=== PATIENT | female | born 1990 | race Asian ===

== ENCOUNTER 2020-06-18 09:08 | Emergency (ER) | payer BC, OTHER ==
[~2020-06-18] VITALS: Ht 147.3 cm; Wt 34.0 kg
[2020-06-18] MEDS ORDERED: TRAZ-257 PO (09:27)
[2020-06-18] MEDS ORDERED: HYDR-501 PO (09:27)
[2020-06-18] MEDS ORDERED: [UNRECOGNIZED DRUG - MIXTURE] PO (09:27)
[2020-06-18] MEDS ORDERED: UREA85CR23 TP (09:27)
[2020-06-18] MEDS ORDERED: ACETAMINOPHEN 325 MG TABLET ONE (09:28)
[2020-06-18] MEDS ORDERED: ACETAMINOPHEN 325 MG TABLET PO ONE (09:30)
--- NOTE | 2020-06-18 09:43 | NUR ---
Patient discharged to home in stable condition. Written and verbal after care instructions given. Patient verbalizes understanding of instructions. Stressed follow up or return to ER for worsening s/s.
== END 2020-06-18 09:46 | disposition home or self-care (01) ==
LOC: ER 09:08
DX: B34.9 Viral infection, unspecified (principal); R50.9 Fever, unspecified; Z20.828 Contact with and (suspected) exposure to other viral communicable diseases; R03.0 Elevated blood-pressure reading, without diagnosis of hypertension
CPT/HCPCS: 99283; U0003; A4663

== ENCOUNTER 2021-04-03 12:57 | Emergency (ER) | payer BC, OTHER ==
[~2021-04-03] VITALS: Ht 147.3 cm; Wt 36.3 kg
[~2021-04-03 12:57] MED LIST: HYDR-501 PO; TRAZ-257 PO; UREA85CR23 TP; [UNRECOGNIZED DRUG - MIXTURE] PO
--- NOTE | 2021-04-03 13:15 | NUR ---
[email or web address], medical screening exam in progress
--- NOTE | 2021-04-03 13:56 | NUR ---
X-ray done. For discharge per MD, pending discharge papers@this time.
--- NOTE | 2021-04-03 14:34 | NUR ---
Patient discharged to home in stable condition with brisk steady gait. Written and verbal after care instructions given to patient. Patient verbalized understanding & compliance of instructions. Stressed follow up with primary doctor or return to ER for worsening s/s.
== END 2021-04-03 14:34 | disposition home or self-care (01) ==
LOC: ER 12:57
DX: M25.532 Pain in left wrist (principal); M77.8 Other enthesopathies, not elsewhere classified; G47.00 Insomnia, unspecified; Z79.899 Other long term (current) drug therapy
CPT/HCPCS: 73110; A4663

== ENCOUNTER 2021-04-06 19:33 | Emergency (ER) | payer BC, OTHER ==
[~2021-04-06] VITALS: Ht 147.3 cm; Wt 39.9 kg
--- NOTE | 2021-04-06 21:00 | NUR ---
Patient is resting comfortably in bed, using phone. No acute distress noted.
[2021-04-06] MEDS ORDERED: HYDR-3980 PO (21:07)
[2021-04-06 21:57] VITALS: BP 132/82
--- NOTE | 2021-04-06 21:57 | NUR ---
Patient discharged to home in stable condition. Written and verbal after care instructions given. Patient verbalizes understanding of instructions. Stressed follow up or return to ER for worsening s/s. Patient ambulates with steady gait, V/S stable, received paper Rx, and left with all personal belongings.
== END 2021-04-06 21:57 | disposition home or self-care (01) ==
LOC: ER 19:33
DX: S69.92XA Unspecified injury of left wrist, hand and finger(s), initial encounter (principal); M25.532 Pain in left wrist; X50.3XXA Overexertion from repetitive movements, initial encounter; Y93.89 Activity, other specified; Y92.89 Other specified places as the place of occurrence of the external cause; Y99.0 Civilian activity done for income or pay; G47.00 Insomnia, unspecified; R03.0 Elevated blood-pressure reading, without diagnosis of hypertension
CPT/HCPCS: 73110; A4663

== ENCOUNTER 2021-10-18 11:41 | Emergency (ER) | payer BC, OTHER ==
[~2021-10-18] VITALS: Ht 152.4 cm; Wt 45.4 kg
[~2021-10-18 11:41] MED LIST changes: +HYDR-3980 PO
--- NOTE | 2021-10-18 11:53 | NUR ---
DR Almeida at the bedside for MSE.
[2021-10-18] MEDS ORDERED: BENZ200C53 PO (11:55)
[2021-10-18] MEDS ORDERED: BENZONATATE 100 MG CAPSULE PO ONE (12:00)
--- NOTE | 2021-10-18 12:06 | NUR ---
PT WAS D/C'd TO HOME AFTER DR RODRIGUEZ EVALUATED THE PT.
[2021-10-18 12:07] VITALS: BP 133/75
[2021-10-18] MEDS ORDERED: BENZONATATE 100 MG CAPSULE ONE (12:07)
== END 2021-10-18 12:08 | disposition home or self-care (01) ==
LOC: ER 11:43
DX: R05.9 Cough, unspecified (principal); R03.0 Elevated blood-pressure reading, without diagnosis of hypertension
CPT/HCPCS: A4663

== ENCOUNTER 2022-11-22 11:06 | Emergency (ER) | payer BC, OTHER ==
[~2022-11-22] VITALS: Ht 147.3 cm; Wt 44.5 kg
[~2022-11-22 11:06] MED LIST changes: +BENZ200C53 PO
[2022-11-22 11:16] VITALS: BP 135/89
--- NOTE | 2022-11-22 11:16 | NUR ---
Dr Mederos seen and examined the pt.
[2022-11-22] MEDS ORDERED: CLOT15CR27 TP (11:23)
== END 2022-11-22 11:28 | disposition home or self-care (01) ==
LOC: ER 11:06
DX: B35.3 Tinea pedis (principal); Z79.899 Other long term (current) drug therapy
CPT/HCPCS: A4663